=== PATIENT | female | born 1995 | race Caucasian/White ===

== ENCOUNTER 2018-11-18 10:37 | Emergency (ER) | payer MEDICAID ==
[~2018-11-18] VITALS: Ht 157.5 cm; Wt 47.6 kg
[2018-11-18] MEDS ORDERED: NKM (10:49)
[2018-11-18 11:02] VITALS: BP 106/67
--- NOTE | 2018-11-18 11:10 | NUR ---
ED Nurse Note:pt. came with abscess on left inner vaginal lip, lidocane jelly was placed on it
[2018-11-18] MEDS ORDERED: Lidocaine 1% 10mg/ml/Epi 0.005mg/ml 10ml vial INJ ONE (11:45)
[2018-11-18] MEDS ORDERED: Lidocaine HCl 2% Jelly 6ml Tube TOPIC ONE (11:45)
--- NOTE | 2018-11-18 12:35 | NUR ---
ED Nurse Note:I&D of vaginal abscess was done at the bedside by ER MD in my presence
[2018-11-18] MEDS ORDERED: DOXYCYCLINE MO100 MG ORAL (12:40)
[2018-11-18] MEDS ORDERED: CEPHALEXIN500 MG ORAL (12:40)
[2018-11-18] MEDS ORDERED: IBUPROFEN600 MG ORAL (12:48)
--- NOTE | 2018-11-18 12:53 | Emergency Room Report ---
History of Present Illness General Chief Complaint: Vaginal Source: Patient Present Illness HPI 23-year-old female presented after increased swelling and discomfort to the left side of her vulvar area. Patient reports having worsening pain over the past few days. She denies any fever. She denies any prior episodes of similar symptoms in the past.Patient denies any prior medical history. Allergies: Coded Allergies: No Known Allergies (Unverified , 11/18/18) Patient History Past Medical History: see triage record Last Menstrual Period: 2 weeks ago Reviewed Nursing Documentation: PMH: Agreed; PSxH: Agreed Nursing Documentation-PMH Past Medical History: No Stated History Review of Systems All Other Systems: negative except mentioned in HPI Physical Exam Vital Signs Date Time Temp Pulse Resp B/P (MAP) Pulse Ox O2 Delivery O2 Flow Rate FiO2 11/18/18 10:47 98.4 84 18 106/67 (80) 98 Room Air General Appearance: well appearing, no apparent distress, alert, GCS 15 Head: normocephalic, atraumatic ENT: hearing grossly normal, normal voice Neck: full range of motion, supple Respiratory: no respiratory distress, speaking full sentences Genitourinary: other - left side fluctuance area, with small eschar Neurologic: normal inspection, alert, oriented x3, normal gait Psychiatric: mood/affect normal Skin: no rash Medical Decision Making Diagnostic Impression: Primary Impression: Skin abscess ER Course Patient presented for skin rash. Differential diagnosis included was not limited to chancroid, abscess, cellulitis, folliculitis, necrotizing fascitis. Patient has a benign exam and does not appear to require any imaging or laboratory testing at this time. Patient appears to have skin abscess. She is consented for procedure. Patient was anesthetized with lidocaine with epinephrine. Patient's abscess was incised and drained with moderate amount of purulent material drainage. Cavity was subsequently irrigated. Patient tolerated the procedure well however she was fairly anxious during anesthesia. Large amount of purulent material. Patient be discharged home. She was advised to follow-up with her physician for recheck in the next 2 days. She is given prescription for doxycycline as well as Keflex. Last Vital Signs Date Time Temp Pulse Resp B/P (MAP) Pulse Ox O2 Delivery O2 Flow Rate FiO2 11/18/18 11:02 98.4 84 18 106/67 98 Room Air Status: improved Disposition: HOME, SELF-CARE Condition: Stable Scripts Ibuprofen* (MOTRIN*) 600 Mg Tablet 600 MG ORAL Q8H PRN for For Pain, #30 TAB 0 Refills Prov: Gerald Todd MD 11/18/18 Doxycycline Monohydrate* (DOXYCYCLINE MONOHYDRATE*) 100 Mg Capsule 100 MG ORAL Q12H, #14 CAP 0 Refills Prov: Gerald Todd MD 11/18/18 Cephalexin* (KEFLEX*) 500 Mg Capsule 500 MG ORAL EVERY 6 HOURS, #28 CAP Prov: Gerald Todd MD 11/18/18 Patient Instructions: Abscess Additional Instructions: Follow up with primary care physician for recheck Gerald Todd MD Nov 18, 2018 12:53
--- NOTE | 2018-11-18 12:55 | NUR ---
ER DISCHARGE NOTE: Patient is cleared to be discharged per ERMD, pt is aox4, on room air, with stable vital signs. pt was given dc and prescription instructions, pt was able to verbalize understanding, pt is able to ambulate with steady gait. pt took all belongings.
[2018-11-18 12:58] VITALS: BP 106/67
== END 2018-11-18 12:59 | disposition home or self-care (01) ==
LOC: EMR 11:18
DX: N76.4 Abscess of vulva (principal)
CPT/HCPCS: 10060; Z7502; 99283